=== PATIENT | male | born 1950 | race Caucasian/White ===

== ENCOUNTER → 2020-10-13 07:49 | Outpatient (REF) | payer OTHER, SELFPAY | LOC: ANHLAB 07:49 | PROVIDERS: Visit Provider Nurse Practitioner | DX: C44.529 Squamous cell carcinoma of skin of other part of trunk (principal); C44.42 Squamous cell carcinoma of skin of scalp and neck; D04.5 Carcinoma in situ of skin of trunk | CPT/HCPCS: 88305; 88331 ==

== ENCOUNTER → 2022-01-25 10:35 | Outpatient (REF) | payer OTHER, SELFPAY | LOC: ANHLAB 10:35 | PROVIDERS: Visit Provider Nurse Practitioner | DX: C44.329 Squamous cell carcinoma of skin of other parts of face (principal) | CPT/HCPCS: 88305; 88331 ==